=== PATIENT | female | born 1970 | race Caucasian/White ===

== ENCOUNTER 2022-07-05 08:24 | Inpatient (IN) | payer BC ==
[2022-07-05 09:06] LABS: #Basophils 0.1 10x3/uL (0.0-0.2); #Eosinphils 0.1 10x3/uL (0.0-0.5); #Monocytes 0.5 10x3/uL (0.0-1.1); #Neutrophils 4.3 10x3/uL (1.5-8.4); %Basophils 0.7 % (0.0-2.0); %Eosinophils 1.1 % (0.0-6.0); %Lymphocytes 42.2 % (18.0-47.0); %Monocytes 5.5 % (0.0-10.0); Mean Corpuscular HGB CONC 33.1 g/dL (32.0-36.0); Mean Corpuscular Hemoglobin 31.7 pg (27.0-33.0); Mean Corpuscular Volume 95.8 fl (81.6-98.3); Mean Platelet Volume 10.5 fl (7.4-10.4); Platelet Count 240 10x3/uL (150-450); Red Blood Cell (RBC) Count 4.73 10x6/uL (3.90-5.03); White Blood Cell (WBC) Count 8.5 10x3/uL (3.5-10.5)
[2022-07-05 09:16] LABS: Prothrombin Time 10.3 sec (9.5-12.1)
[2022-07-05 09:17] LABS: PTT 20.7 sec (22.0-33.0)
[2022-07-05 09:24] LABS: ALT (SGPT) 44 U/L (8-55); AST (SGOT) 40 U/L (5-34); Acetaminophen Less than 10.0 mcg/mL (10.0-30.0); Albumin 4.1 g/dL (3.5-5.0); Alcohol Less than 10 mg/dL (Less than 10); Alkaline Phosphatase 66 U/L (40-110); Anion Gap 28 mmol/L (10-20); BUN (Urea Nitrogen) 12 mg/dL (9.8-20.1); Bilirubin, Total 0.3 mg/dL (0.2-1.2); CK (CPK) 77 U/L (29-168); Calc. Creatinine Clearance 0 mL/min (70-130); Calcium 8.7 mg/dL (7.8-10.44); Chloride 105 mmol/L (98-107); Estimated GFR 54; Globulin 2.5 g/dL (2.4-3.5); Glucose 291 mg/dL (70-105); Lipase 51 U/L (8-78); Magnesium 2.1 mg/dL (1.6-2.6); Potassium 4.1 mmol/L (3.5-5.1); Protein, Total 6.6 g/dL (6.0-8.3); Salicylate Less than 8.0 mg/dL (15.0-30.0); Sodium 137 mmol/L (136-145)
[2022-07-05 09:30] LABS: Carbon Dioxide 8 mmol/L (22-29)
[2022-07-05] MEDS ORDERED: Iopamidol 370 76% 100 ML VIAL ONE (09:50)
[2022-07-05] MEDS ORDERED: Ondansetron ODT 4 MG TAB ONE (09:59)
[2022-07-05 10:00] LABS: Bilirubin Neg (Negative); Blood, Urine 250 (Negative); Clarity Bloody (Clear); Glucose, Urine (Dipstick) 250 mg/dL (Negative); Ketone, Urine 5 mg/dL (Negative); Leukocyte 100 (Negative); Nitrite Negative (Negative); Protein, Urine (Dipstick) 100 mg/dl (Neg-Trace); Urobilinogen Normal mg/dL (Less than 2); pH, Urine 6.5 (5.0-9.0)
[2022-07-05 10:05] LABS: Bacteria/HPF None Seen HPF (None Seen); RBC/HPF Greater than 50 HPF (0-3); Squamous Epithelial 0-3 HPF (0-3); WBC/HPF 0-3 HPF (0-3)
[2022-07-05 10:21] LABS: Actual Bicarbonate (HCO3v) 19 mEq/L (22-28); Base Excess -7.2 mEq/L (-2 - +2); Calcium, Ionized (venous) 1.24 mmol/L (1.16-1.32); Chloride (VBG) 102 mmol/L (98-106); Hemoglobin (Hb) 15.8 g/dL (11.7-16.0); Potassium (VBG) 4.33 mmol/L (3.70-5.30); Puncture Site Other Site; RapidComm Collect By LAB; Sodium 147.1 mmol/L (133-146); pH (venous) 7.28 (7.32-7.43)
[2022-07-05 10:41] LABS: SARS-CoV-2 NAA Rapid Test Not Detected (NotDetected)
[2022-07-05] MEDS ORDERED: Ondansetron PF 4 MG/2 ML Vial IVP PRN (11:23)
[2022-07-05] MEDS ORDERED: Nicotine 21 MG PATCH TD SCH (12:00)
[2022-07-05] MEDS ORDERED: levETIRAcetam 500 MG/5 ML VIAL ONE ×3 (12:01→21:12)
[2022-07-05] MEDS ORDERED: Aspirin 325 MG TAB ONE (12:01)
[2022-07-05 12:13] LABS: Lactic Acid 1.7 mmol/L (0.5-2.2)
[2022-07-05 12:39] LABS: Troponin I 0.314 ng/mL (< 0.028)
[2022-07-05] MEDS ORDERED: Sodium Bicarbonate 50 MEQ, Admixture Fee 1 EACH in Sodium Chloride 0.45% 1,000 ML IV SCH (13:00)
[2022-07-05 17:22] LABS: Hemoglobin A1c 5.3 % (4.0-6.0)
[2022-07-05 17:43] LABS: Troponin I 0.309 ng/mL (< 0.028)
[2022-07-05] MEDS ORDERED: Famotidine 20 MG TAB ONE (21:15)
[2022-07-05] MEDS: levETIRAcetam 500 MG/5 ML VIAL SLOW IVP SCH (21:34)
[2022-07-05] MEDS: Famotidine 20 MG TAB PO SCH (21:34)
[2022-07-06] MEDS: Lactated Ringer's 1,000 ML IV SCH ×4 (03:36→15:13)
[2022-07-06 03:44] LABS: ALT (SGPT) 35 U/L (8-55); AST (SGOT) 28 U/L (5-34); Albumin 3.4 g/dL (3.5-5.0); Alkaline Phosphatase 52 U/L (40-110); Anion Gap 12 mmol/L (10-20); BUN (Urea Nitrogen) 10 mg/dL (9.8-20.1); Bilirubin, Total 0.3 mg/dL (0.2-1.2); Calc. Creatinine Clearance 0 mL/min (70-130); Calcium 8.3 mg/dL (7.8-10.44); Carbon Dioxide 21 mmol/L (22-29); Chloride 112 mmol/L (98-107); Estimated GFR 96; Globulin 1.9 g/dL (2.4-3.5); Glucose 113 mg/dL (70-105); Potassium 3.4 mmol/L (3.5-5.1); Protein, Total 5.3 g/dL (6.0-8.3); Sodium 142 mmol/L (136-145)
[2022-07-06] MEDS ORDERED: Potassium Chloride 20 MEQ TAB PO SCH (08:15)
[2022-07-06] MEDS ORDERED: Lorazepam 2 MG/ML VIAL ONE (08:36)
[2022-07-06] MEDS: Lorazepam 2 MG/ML VIAL SLOW IVP PRN ×2 (08:41→19:27)
[2022-07-06 08:54] LABS: Troponin I 0.102 ng/mL (< 0.028)
[2022-07-06] MEDS ORDERED: levETIRAcetam 500 MG/5 ML VIAL ONE (09:30)
[2022-07-06] MEDS: levETIRAcetam 500 MG/5 ML VIAL SLOW IVP SCH ×2 (09:31→21:07)
[2022-07-06] MEDS: Famotidine 20 MG TAB PO SCH ×2 (10:50→21:06)
[2022-07-06] MEDS: Transdermal Patch Removal TOP SCH (10:56)
[2022-07-06] MEDS: Nicotine 21 MG PATCH TD SCH (11:03)
[2022-07-06 11:36] VITALS: BMI 32.3
[2022-07-06] MEDS: cefTRIAXone\\ROCEPHIN 1 GM in Sodium Chloride 0.9% 100 ML IVPB SCH (11:58)
[2022-07-06] MEDS ORDERED: Nitroglycerin 0.4 MG TAB (25 Tab Bottle) ONE (19:27)
[2022-07-06] MEDS: Nitroglycerin 0.4 MG TAB (25 Tab Bottle) SL PRN ×2 (19:30→19:35)
[2022-07-06] MEDS: Acetaminophen 325 MG TAB PO PRN (19:39)
[2022-07-06 20:21] LABS: Troponin I 0.129 ng/mL (< 0.028)
[2022-07-06] MEDS: Metoprolol Tartrate 25 MG TAB PO SCH (21:15)
[2022-07-07] MEDS: Lactated Ringer's 1,000 ML IV SCH (03:32)
[2022-07-07 04:03] LABS: Amphetamine Not Detected (NotDetected); Barbiturates Screen Not Detected (NotDetected); Benzodiazepine Screen Detected (NotDetected); Cocaine Metabolite Screen Not Detected (NotDetected); Methadone Not Detected (NotDetected); Methamphetamine Not Detected (NotDetected); Opiate Screen Not Detected (NotDetected); Oxycodone Screen Not Detected (NotDetected); Phencyclidine (PCP) Not Detected (NotDetected); THC/Cannabinoid Screen Not Detected (NotDetected); Tricyclic Screen Not Detected (NotDetected)
[2022-07-07 04:06] LABS: #Basophils 0.1 10x3/uL (0.0-0.2); #Eosinphils 0.1 10x3/uL (0.0-0.5); #Monocytes 0.4 10x3/uL (0.0-1.1); #Neutrophils 3.5 10x3/uL (1.5-8.4); %Basophils 0.9 % (0.0-2.0); %Eosinophils 1.6 % (0.0-6.0); %Lymphocytes 42.2 % (18.0-47.0); %Monocytes 5.3 % (0.0-10.0); %Neutrophils 49.9 % (40.0-75.0); Mean Corpuscular HGB CONC 33.7 g/dL (32.0-36.0); Mean Corpuscular Hemoglobin 31.2 pg (27.0-33.0); Mean Corpuscular Volume 92.5 fl (81.6-98.3); Mean Platelet Volume 10.6 fl (7.4-10.4); Platelet Count 182 10x3/uL (150-450); RBC Distribution Width 13.2 % (11.5-14.5); Red Blood Cell (RBC) Count 3.85 10x6/uL (3.90-5.03); White Blood Cell (WBC) Count 6.9 10x3/uL (3.5-10.5)
[2022-07-07 04:18] LABS: ALT (SGPT) 31 U/L (8-55); AST (SGOT) 20 U/L (5-34); Albumin 3.4 g/dL (3.5-5.0); Alkaline Phosphatase 49 U/L (40-110); Anion Gap 15 mmol/L (10-20); BUN (Urea Nitrogen) 6 mg/dL (9.8-20.1); Bilirubin, Total 0.2 mg/dL (0.2-1.2); Calc. Creatinine Clearance 131 mL/min (70-130); Calcium 8.6 mg/dL (7.8-10.44); Carbon Dioxide 21 mmol/L (22-29); Chloride 111 mmol/L (98-107); Estimated GFR 101; Glucose 96 mg/dL (70-105); Potassium 3.9 mmol/L (3.5-5.1); Protein, Total 5.4 g/dL (6.0-8.3); Sodium 143 mmol/L (136-145)
[2022-07-07 04:42] LABS: CKMB 1.8 ng/mL (0-6.6)
[2022-07-07] MEDS ORDERED: Rosuvastatin 10 MG TAB PO SCH (09:00)
[2022-07-07] MEDS: Transdermal Patch Removal TOP SCH (10:18)
[2022-07-07] MEDS: Nicotine 21 MG PATCH TD SCH (10:18)
[2022-07-07] MEDS: Metoprolol Tartrate 25 MG TAB PO SCH (10:58)
[2022-07-07] MEDS: Famotidine 20 MG TAB PO SCH (10:58)
[2022-07-07] MEDS: cefTRIAXone\\ROCEPHIN 1 GM in Sodium Chloride 0.9% 100 ML IVPB SCH (10:59)
[2022-07-07] MEDS: levETIRAcetam 500 MG/5 ML VIAL SLOW IVP SCH (10:59)
[2022-07-07 12:02] VITALS: TEMP 98.4
[2022-07-07] MEDS: Acetaminophen 325 MG TAB PO PRN (14:38)
[2022-07-07 16:28] VITALS: BP 138/74
== END 2022-07-07 15:00 | disposition home or self-care (01) | DRG 880 ==
LOC: CSHERS 08:24 → CSHERHOLD 21:04 → INTOOBSV 21:04 → CSHTELE 07-06 09:36 → OBSVTOIN 07-07 09:11
PROVIDERS: ADMIT Internal Medicine; ATTEND Internal Medicine
DX: F41.0 Panic disorder [episodic paroxysmal anxiety] (principal); N17.9 Acute kidney failure, unspecified; E87.20 Acidosis, unspecified; N39.0 Urinary tract infection, site not specified; R56.9 Unspecified convulsions; I25.2 Old myocardial infarction; I25.10 Atherosclerotic heart disease of native coronary artery without angina pectoris; E78.5 Hyperlipidemia, unspecified; E66.9 Obesity, unspecified; F17.210 Nicotine dependence, cigarettes, uncomplicated; R73.9 Hyperglycemia, unspecified; K21.9 Gastro-esophageal reflux disease without esophagitis; E87.6 Hypokalemia; J44.9 Chronic obstructive pulmonary disease, unspecified; I10 Essential (primary) hypertension; Z82.49 Family history of ischemic heart disease and other diseases of the circulatory system; Z90.49 Acquired absence of other specified parts of digestive tract; Z88.5 Allergy status to narcotic agent; Z68.32 Body mass index [BMI] 32.0-32.9, adult; Z98.890 Other specified postprocedural states; Z79.899 Other long term (current) drug therapy; Z98.51 Tubal ligation status; Z20.822 Contact with and (suspected) exposure to COVID-19
CPT/HCPCS: 36415; 36416; 70450; 70551; 71275; 80053; 80306; 80307; 81003; 81015; 82550; 82553; 82805; 83036; 83605; 83690; 83735; 83880; 84146; 84443; 84484; 85025; 85610; 85730; 93005; 93010; 93306; 95816; 95819; 95957; 96376; G0378; J0696; J1953; J2060; J3490; J7120; Q0162; Q9967; U0002